=== PATIENT | male | born 1965 | race Caucasian/White ===

== ENCOUNTER 2022-07-17 13:17 | Outpatient (CLI) | payer BC, SELFPAY ==
[2022-07-17 15:44] LABS: SARS PCR* Negative SARS-CoV-2 (Negative)
== END 2022-07-17 13:18 | disposition home or self-care (01) ==
PROVIDERS: PCP Nurse Practitioner Family; Visit Provider Nurse Practitioner Family
DX: Z20.822 Contact with and (suspected) exposure to COVID-19 (principal)
CPT/HCPCS: 87635

== ENCOUNTER 2022-07-20 08:15 | Outpatient (CLI) | payer BC, SELFPAY | END 2022-07-20 08:16 | disposition home or self-care (01) | PROVIDERS: PCP Nurse Practitioner Family; Visit Provider Surgery | DX: Z12.11 Encounter for screening for malignant neoplasm of colon (principal); K63.5 Polyp of colon; K62.1 Rectal polyp; Z86.010 Personal history of colon polyps | CPT/HCPCS: 45380; 45381; 45385; 99153; J2250; J3010 ==

== ENCOUNTER 2023-07-13 16:45 | Outpatient (CLI) | payer BC, SELFPAY | END 2023-07-13 16:46 | disposition home or self-care (01) | PROVIDERS: PCP Nurse Practitioner Family; Visit Provider Nurse Practitioner Family | DX: R79.89 Other specified abnormal findings of blood chemistry (principal); I10 Essential (primary) hypertension; N52.9 Male erectile dysfunction, unspecified | CPT/HCPCS: 84153; 84403 ==

== ENCOUNTER 2023-07-20 14:57 | Outpatient (CLI) | payer BC, SELFPAY | END 2023-07-20 14:58 | disposition home or self-care (01) | LOC: KYNREF 16:08 | PROVIDERS: PCP Nurse Practitioner Family; Visit Provider Nurse Practitioner Family | DX: Z12.5 Encounter for screening for malignant neoplasm of prostate (principal); R79.89 Other specified abnormal findings of blood chemistry | CPT/HCPCS: 84443 ==

== ENCOUNTER 2023-07-26 06:27 | Outpatient (CLI) | payer BC, SELFPAY ==
--- NOTE | 2023-07-26 08:29 | W.ANESCHARGE ---
Anesthesia Charges Start Date/Time Anesthesia Start Date: 07/26/23 Anesthesia Start Time: 07:30 Stop Date/Time Anesthesia Stop Date: 07/26/23 Anesthesia Stop Time: 08:16
--- NOTE | 2023-07-26 08:57 | W.ANESCHARGE ---
Anesthesia Charges Start Date/Time Anesthesia Start Date: 07/26/23 Anesthesia Start Time: 07:30 Stop Date/Time Anesthesia Stop Date: 07/26/23 Anesthesia Stop Time: 08:16
== END 2023-07-26 06:28 | disposition home or self-care (01) ==
LOC: OP CLINIC 06:28
PROVIDERS: PCP Nurse Practitioner Family; Visit Provider Surgery
DX: Z86.010 Personal history of colon polyps (principal); K63.5 Polyp of colon; Z98.890 Other specified postprocedural states
CPT/HCPCS: 00811; 45385; 88305; J2704

== ENCOUNTER 2024-02-17 08:53 | Outpatient (CLI) | payer BC, SELFPAY | END 2024-02-17 08:54 | disposition home or self-care (01) | PROVIDERS: PCP Nurse Practitioner Family; Visit Provider Nurse Practitioner Family | DX: Z12.5 Encounter for screening for malignant neoplasm of prostate (principal); I10 Essential (primary) hypertension; Z13.220 Encounter for screening for lipoid disorders; Z13.21 Encounter for screening for nutritional disorder | CPT/HCPCS: 80053; 80061; 82306; 85025; G0103 ==

== ENCOUNTER 2025-02-20 10:39 | Outpatient (CLI) | payer BC, SELFPAY | END 2025-02-20 10:40 | disposition home or self-care (01) | PROVIDERS: PCP Nurse Practitioner Family; Visit Provider Nurse Practitioner Family | DX: Z00.01 Encounter for general adult medical examination with abnormal findings (principal); I10 Essential (primary) hypertension; N52.9 Male erectile dysfunction, unspecified; Z12.5 Encounter for screening for malignant neoplasm of prostate | CPT/HCPCS: 80053; 80061; 85025; G0103 ==